=== PATIENT | female | born 2000 | race Caucasian/White ===

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

== ENCOUNTER 2023-02-28 14:50 | Emergency (ER) | payer OTHER ==
[2023-02-28 15:12] VITALS: BP 123/66; O2SAT 100
--- NOTE | 2023-02-28 15:17 | ED Physician Documentation ---
PD HPI URI - Stated complaint Stated Complaint: BILAT EAR PX, PRESSURE - Chief complaint Chief Complaint: Heent - History obtained from History obtained from: Patient - History of Present Illness Timing - onset: How many days ago (few days of pressure feeling in ears and nasal congestion. Had bilateral ears hurting onset last night.) Timing duration: Days Timing details: Gradual onset, Still present Associated symptoms: Ear pain, Nasal congestion, Sinus pain. No: Fever, Chills, Sore throat Contributing factors: No: Sick contact Similar symptoms before: Has not had sx before Review of Systems Constitutional: denies: Fever, Chills Ears: reports: Ear pain Nose: reports: Congestion, Sinus pressure / pain Throat: denies: Sore throat PD PAST MEDICAL HISTORY - Past Medical History Past Medical History: No - Past Surgical History Past Surgical History: No - Present Medications Home Medications: Ambulatory Orders Medication Instructions Recorded Confirmed Amoxicillin 500 mg PO TID #21 cap 02/28/23 Cetirizine [ZyrTEC] 10 mg PO BID #15 tablet 02/28/23 - Allergies Allergies/Adverse Reactions: Allergies Allergy/AdvReac Type Severity Reaction Status Date / Time No Known Drug Allergies Allergy Verified 02/28/23 15:12 - Social History Does the pt smoke?: No Smoking Status: Never smoker Does the pt drink ETOH?: No Does the pt have substance abuse?: No - Immunizations Immunizations are current?: Yes - POLST Patient has POLST: No PD ED PE NORMAL - Vitals Vital signs reviewed: Yes - General General: Alert and oriented X 3, No acute distress, Well developed/nourished - HEENT HEENT: Moist mucous membranes, Pharynx benign. No: Ears normal (fluid behind both eardrums. Right side with moderate redness as well. ) - Neck Neck: Supple, no meningeal sign, No adenopathy - Respiratory Respiratory: Clear bilaterally Results - Vitals Vitals: Oxygen O2 Source Room air PD Medical Decision Making - ED course Complexity details: considered differential (congestion and ear pressure/pain but is abruptly worsening and some redness of right TM, consider infectious cause. ), d/w patient Departure - Departure Disposition: 01 Home, Self Care Clinical Impression: Ear pain Qualifiers: Laterality: bilateral Qualified Code(s): H92.03 - Otalgia, bilateral Otitis media Qualifiers: Chronicity: acute Laterality: right Recurrence: non-recurrent Spontaneous tympanic membrane rupture: without spontaneous rupture Condition: Stable Record reviewed to determine appropriate education?: Yes Instructions: ED Otitis Media Acute Adult Prescriptions: Amoxicillin 500 mg PO TID #21 cap Cetirizine [ZyrTEC] 10 mg PO BID #15 tablet Comments: There does appear to be fluid behind the eardrums that is likely causing much of your symptoms. There is some moderate redness on the right as well that may be infectious 2. We can treat this with cetirizine antihistamine as well as ibuprofen anti-inflammatories. I would also add amoxicillin antibiotic. I sent your prescriptions to [facility] pharmacy. Recheck if not improving well over the next several days and resolved by 3 to 5 days. Forms: PCP List Discharge Date/Time: 02/28/23 15:43
[2023-02-28] MEDS ORDERED: IBUPROFEN 600 MG TABLET PO STA (15:31)
[2023-02-28] MEDS ORDERED: AMOXICILLIN 250 MG CAPSULE PO STA (15:31)
[2023-02-28] MEDS ORDERED: CETIRIZINE 10 MG TABLET PO STA (15:32)
== END 2023-02-28 15:43 | disposition home or self-care (01) ==
LOC: ED 14:50
DX: H66.91 Otitis media, unspecified, right ear (principal); H92.03 Otalgia, bilateral
CPT/HCPCS: 99282; 99283; A9270

== ENCOUNTER 2023-04-25 09:19 | Emergency (ER) | payer OTHER ==
[2023-04-25] MEDS ORDERED: DEXAMETHASONE 10 MG/ML VIAL PO STA (10:07)
[2023-04-25] MEDS ORDERED: CHERRY SYRUP 10 ML UDC PO ONE (10:07)
[2023-04-25] MEDS ORDERED: KETOROLAC 30 MG/ML VIAL IM STA (10:07)
--- NOTE | 2023-04-25 10:10 | ED Physician Documentation ---
PD HPI BACK PAIN - Stated complaint Stated Complaint: BACK PX - Chief complaint Chief Complaint: Back Pain - History obtained from History obtained from: Patient, Friend - History of Present Illness Timing - onset: How many years ago (4) Timing - duration: Years (4) Timing - details: Gradual onset, Still present Location: Upper, Mid, Lower Quality: Pain Associated symptoms: Numbness (across lower back is new). 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 [place] and she did have some imaging done of her spine with a CT scan and she has been in to get physical therapy. A referral to chiropractor has failed. Review of Systems Constitutional: denies: Fever Ears: denies: Ear pain Nose: denies: Congestion Throat: denies: Sore throat Respiratory: denies: Dyspnea, Cough GI: denies: Abdominal Pain, Nausea, Vomiting, Constipation, Diarrhea : denies: Dysuria, Frequency Skin: denies: Rash Musculoskeletal: reports: Back pain. denies: Extremity pain Neurologic: denies: Generalized weakness, Focal weakness, Numbness PD PAST MEDICAL HISTORY - Past Medical History Past Medical History: Yes : Renal insuffiency - Past Surgical History Past Surgical History: Yes - Present Medications Home Medications: Ambulatory Orders Medication Instructions Recorded Confirmed Loratadine [All Day Allergy Relief] 10 mg PO DAILY 04/25/23 04/25/23 traMADol [Ultram] 50 - 100 mg PO Q6H PRN #20 tablet 04/25/23 - Allergies Allergies/Adverse Reactions: Allergies Allergy/AdvReac Type Severity Reaction Status Date / Time No Known Drug Allergies Allergy Verified 04/25/23 09:25 - Social History Does the pt smoke?: No Smoking Status: Never smoker Does the pt drink ETOH?: No Does the pt have substance abuse?: No - Immunizations Immunizations are current?: Yes - POLST Patient has POLST: No PD ED PE NORMAL - Vitals Vital signs reviewed: Yes (hypertensive ) - General General: Alert and oriented X 3, No acute distress, Well developed/nourished - HEENT HEENT: Atraumatic, PERRL, EOMI - Respiratory Respiratory: No respiratory distress - Back Back: No CVA TTP, No spinal TTP, Other (generally tender back through the rhomboids and para spinous muscles and up to the trapezius and across the shoulders. ) - Derm Derm: Normal color, Warm and dry, No rash - Extremities Extremities: No deformity, No edema - Neuro Neuro: Alert and oriented X 3, inspector finishing 2-12 intact, No motor deficit, No sensory deficit, Normal speech Eye Opening: Spontaneous Motor: Obeys Commands Verbal: Oriented GCS Score: 15 - Psych Psych: Normal mood, Normal affect Results - Vitals Vitals: Vital Signs - 24 hr 04/25/23 04/25/23 09:20 11:37 Temperature 36.6 C 36.6 C Heart Rate 83 74 Respiratory 16 16 Rate Blood Pressure 136/91 H 135/71 H O2 Saturation 99 95 Oxygen O2 Source Room air - Labs Labs: Laboratory Tests 04/25/23 04/25/23 04/25/23 10:12 10:12 10:12 WBC 10.5 RBC 4.60 Hgb 13.8 Hct 41.2 MCV 89.6 MCH 30.0 MCHC 33.5 RDW 12.5 Plt Count 337 MPV 10.5 Neut # (Auto) 7.5 H Lymph # (Auto) 2.2 [place] # (Auto) 0.5 Eos # (Auto) 0.2 Baso # (Auto) 0.1 Absolute Nucleated RBC 0.00 Nucleated RBC % 0.0 ESR 7 Sodium 140 Potassium 3.4 L Chloride 107 Carbon Dioxide 26 Anion Gap 7.0 BUN 10 Creatinine 0.7 Estimated GFR (MDRD) 107 Glucose 107 H Calcium 9.5 Total Bilirubin 0.7 AST 20 ALT 25 Alkaline Phosphatase 61 C-Reactive Protein 0.5 Total Protein 7.1 Albumin 4.3 Globulin 2.8 Albumin/Globulin Ratio 1.5 Lipase 11 PD Medical Decision Making - ED course Complexity details: reviewed results, re-evaluated patient, considered differential, d/w patient, d/w family Reviewed Lab Results: We reviewed a complete blood count showing a normal white blood cell count normal hemoglobin hematocrit and platelets and normal industries the ESR was normal at 7 a chemistry panel showed a potassium low at 3.4 the rest of the electrolytes kidney and liver function are normal the C-reactive protein was normal at 0.5. 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 She does not give a history of resolution of symptoms with rest and I do not think she is an astute historian. She keeps saying that she does not know. She appears frustrated and I have gone to great lengths to explain different mechanisms for having this type of chronic pain mostly related to work habits. Today in the emergency department she is given a dose of dexamethasone and Toradol which does have some improvement in her general pain. At the conclusion of treatment it is apparent the patient wants something else for pain. She is not able to take anti-inflammatories as she only has 1 kidney. She has chronic pain and I have discouraged her from using pain medication she indicates to me that she has had to take pain medicines previously she has never felt that she had a problem with addiction. She indicates that hydrocodone does nothing for her she has had prior improvement with tramadol and oxycodone. We will provide a limited supply of tramadol for the patient and I will refer her to her primary care for referral to a chiropractor. Departure - Departure Disposition: 01 Home, Self Care Clinical Impression: Back pain Qualifiers: Back pain location: thoracic back pain Chronicity: chronic Back pain laterality: bilateral Qualified Code(s): M54.6 - Pain in thoracic spine Condition: Stable Instructions: ED Spasm Back No Trauma, ED Chronic Pain Management Follow-Up: GURU ABREU DO [Primary Care Provider] - Prescriptions: traMADol [Ultram] 50 - 100 mg PO Q6H PRN #20 tablet PRN Reason: Pain Comments: Marii, today it looks like the pain you are having in your back is chronic and we did not find inflammatory markers elevated to suggest this was a specific type of muscle problem. This type of pain is usually related to overuse and skeletal malalignment. My recommendation is to follow-up with the chiropractor as you have previously attempted. I have E scrib[facility] [place]. Discharge Date/Time: 04/25/23 11:39
[2023-04-25 10:18] LABS: BASOPHILS # (AUTO) 0.1 10^3/uL (0.0-0.1); BASOPHILS % (AUTO) 0.7 %; EOSINOPHILS # (AUTO) 0.2 10^3/uL (0.0-0.7); EOSINOPHILS % (AUTO) 1.4 %; HCT - HEMATOCRIT 41.2 % (37.0-47.0); HGB - HEMOGLOBIN 13.8 g/dL (12.0-16.0); LYMPHOCYTES # (AUTO) 2.2 10^3/uL (1.5-3.5); MEAN CORPUSCULAR HGB CONC 33.5 g/dL (32.0-36.0); MEAN CORPUSCULAR VOLUME 89.6 fL (81.0-99.0); MEAN PLATELET VOLUME 10.5 fL (7.9-10.8); MONOCYTES # (AUTO) 0.5 10^3/uL (0.0-1.0); NEUTROPHILS # (AUTO) 7.5 10^3/uL (1.5-6.6); NEUTROPHILS % (AUTO) 71.6 %; PLT - PLATELET COUNT 337 10^3/uL (130-450); RED CELL DISTRIBUTION WIDTH 12.5 % (12.0-15.0); WHITE BLOOD COUNT 10.5 x10^3/uL (4.8-10.8)
[2023-04-25 10:32] LABS: ALBUMIN 4.3 g/dL (3.2-5.5); ALBUMIN/GLOBULIN RATIO 1.5 (1.0-2.2); BILIRUBIN,TOTAL 0.7 mg/dL (0.2-1.0); CALCIUM 9.5 mg/dL (8.5-10.3); CREATININE 0.7 mg/dL (0.6-1.3); CRP - C-REACTIVE PROTEIN 0.5 mg/dL (<0.5); POTASSIUM 3.4 mmol/L (3.5-4.5); TOTAL PROTEIN 7.1 g/dL (6.4-8.9)
[2023-04-25 11:46] VITALS: BP 135/71; O2SAT 95
== END 2023-04-25 11:39 | disposition home or self-care (01) ==
LOC: ED 09:19
DX: M54.6 Pain in thoracic spine (principal); G89.29 Other chronic pain; Z90.5 Acquired absence of kidney
CPT/HCPCS: 36415; 80053; 83690; 85025; 85651; 86140; 96372; 99283; A9270

== ENCOUNTER 2023-05-02 22:57 | Emergency (ER) | payer OTHER ==
[2023-05-02 23:11] VITALS: BP 125/73; O2SAT 99
[2023-05-02] MEDS ORDERED: methocarbamoL 500 MG TABLET PO STA (23:24)
--- NOTE | 2023-05-02 23:29 | ED Physician Documentation ---
History of Present Illness - Stated complaint Stated Complaint: BACK PX - Chief complaint Chief Complaint: Back Pain - History obtained from History obtained from: Patient - Additonal information Additional information: 22yF with pmh chronic back pain p/w persistent upper mid back pain X 4 years, worse this evening without acute injury. worse with ROM and moving/walking around. denies fever, lower back pain/flank pain or urinary sx. PD PAST MEDICAL HISTORY - Past Medical History Past Medical History: Yes : Renal insuffiency Musculoskeletal: Chronic back pain - Past Surgical History Past Surgical History: No - Present Medications Home Medications: Ambulatory Orders Medication Instructions Recorded Confirmed traMADol [Ultram] 50 - 100 mg PO Q6H PRN #20 tablet 04/25/23 05/02/23 methocarbamoL [Robaxin] 500 mg PO Q6H PRN #20 tablet 05/02/23 - Allergies Allergies/Adverse Reactions: Allergies Allergy/AdvReac Type Severity Reaction Status Date / Time NSAIDS (Non-Steroidal Allergy Unknown Verified 05/02/23 23:09 Anti-Inflamma tree nuts Allergy Rash Uncoded 05/02/23 23:10 - Social History Does the pt smoke?: No Smoking Status: Never smoker Does the pt drink ETOH?: No Does the pt have substance abuse?: No - Immunizations Immunizations are current?: Yes - POLST Patient has POLST: No PD ED PE NORMAL - Vitals Vital signs reviewed: Yes - General General: Alert and oriented X 3, No acute distress, Well developed/nourished - HEENT HEENT: Atraumatic, PERRL - Neck Neck: Supple, no meningeal sign, No bony TTP, Other (BL neck discomfort to palpation in trapezius muscle distribution) - Back Back: No CVA TTP, No spinal TTP, Other (BL upper back ttp along paraspinal muscles. ) - Derm Derm: Normal color, Warm and dry - Extremities Extremities: Other (CSM intact BL LE) - Neuro Neuro: No motor deficit, No sensory deficit Results - Vitals Vitals: Vital Signs - 24 hr 05/02/23 23:02 Temperature 36.4 C L Heart Rate 455 H Respiratory 16 Rate Blood Pressure 125/73 O2 Saturation 99 Oxygen O2 Source Room air PD Medical Decision Making - ED course ED course: 22yF p/w acute on chronic upper back pain, not relieved with tylenol or tramadol. patient cannot take NSAIDs due to renal insufficiency. doubt renal etiology given no CVA ttp and pain is in muscle distribution along upper back. no midline ttp therefore doubt spinal pathology. robaxin provided with improvement in pain. rx sent and return precautions given. she will f/u with wi. Departure - Departure Disposition: 01 Home, Self Care Clinical Impression: Back pain Condition: Stable Instructions: ED Neck Back Pain General Prescriptions: methocarbamoL [Robaxin] 500 mg PO Q6H PRN #20 tablet PRN Reason: Pain >8 Comments: You were seen in the emergency department for back pain. Prescription for Robaxin, muscle relaxer, [facility] [place]. Please follow-up with your primary care provider or walk in clinic and return to the emergency department if you have any new or worsening symptoms or other concerns.
--- NOTE | 2023-05-04 12:55 | ED Physician Documentation ---
ED Addendum - Addendum Addendum: 05/04/23 12:54 [facility] apparently did not receive the prescription. The patient asked that we resend it. I reordered the medications including tramadol as they had been prescribed by the prior provider and retransmitted to [facility].
== END 2023-05-02 23:46 | disposition home or self-care (01) ==
LOC: ED 22:57
DX: M54.6 Pain in thoracic spine (principal)
CPT/HCPCS: 99282; 99283; A9270

== ENCOUNTER 2024-01-01 09:38 | Emergency (ER) | payer MEDICAID, OTHER ==
[2024-01-01 09:56] VITALS: O2SAT 100
[2024-01-01 10:26] LABS: BILIRUBIN,URINE NEGATIVE (NEGATIVE); GLUCOSE, URINE (UA) NEGATIVE (NEGATIVE); KETONES,URINE (UA) NEGATIVE (NEGATIVE); LEUKOCYTE ESTERASE, URINE TRACE (NEGATIVE); NITRITE,URINE NEGATIVE (NEGATIVE); OCCULT BLOOD,URINE SMALL (NEGATIVE); PROTEIN,URINE NEGATIVE (NEGATIVE); UROBILINOGEN,URINE 0.2 (NORMAL) E.U./dL (NORMAL)
[2024-01-01 10:27] LABS: BASOPHILS # (AUTO) 0.1 10^3/uL (0.0-0.1); BASOPHILS % (AUTO) 0.6 %; EOSINOPHILS % (AUTO) 0.4 %; HCT - HEMATOCRIT 43.1 % (37.0-47.0); HGB - HEMOGLOBIN 14.5 g/dL (12.0-16.0); LYMPHOCYTES # (AUTO) 2.1 10^3/uL (1.5-3.5); LYMPHOCYTES % (AUTO) 18.3 %; MEAN CORPUSCULAR HEMOGLOBIN 31.7 pg (27.0-31.0); MEAN CORPUSCULAR HGB CONC 33.6 g/dL (32.0-36.0); MEAN CORPUSCULAR VOLUME 94.1 fL (81.0-99.0); MEAN PLATELET VOLUME 10.5 fL (7.9-10.8); MONOCYTES # (AUTO) 0.4 10^3/uL (0.0-1.0); MONOCYTES % (AUTO) 3.8 %; NEUTROPHILS # (AUTO) 8.8 10^3/uL (1.5-6.6); NEUTROPHILS % (AUTO) 76.5 %; PLT - PLATELET COUNT 302 10^3/uL (130-450); RED BLOOD COUNT 4.58 10^6/uL (4.20-5.40); RED CELL DISTRIBUTION WIDTH 12.1 % (12.0-15.0); WHITE BLOOD COUNT 11.4 x10^3/uL (4.8-10.8)
[2024-01-01 10:31] LABS: CLARITY,URINE CLEAR (CLEAR); HCG UR QUAL NEGATIVE
[2024-01-01 10:34] LABS: AMPHETAMINE SCREEN,URINE NEGATIVE (NEGATIVE); BARBITURATE SCREEN,UR NEGATIVE (NEGATIVE); BENZODIAZEPINES SCREEN, URINE NEGATIVE (NEGATIVE); BUPRENORPHINE SCREEN, URINE NEGATIVE (NEGATIVE); COCAINE SCREEN URINE NEGATIVE (NEGATIVE); METHADONE SCREEN, URINE NEGATIVE (NEGATIVE); METHAMPHETAMINES SCREEN, URINE NEGATIVE (NEGATIVE); OPIATE SCREEN, URINE NEGATIVE (NEGATIVE); OXYCODONE SCREEN, URINE NEGATIVE (NEGATIVE); THC CANNABINOID SCREEN, URINE POSITIVE (NEGATIVE); TRICYCLIC ANTIDEPRESSANT,URINE NEGATIVE (NEGATIVE)
[2024-01-01 10:41] LABS: ALBUMIN 4.5 g/dL (3.2-5.5); ALBUMIN/GLOBULIN RATIO 1.3 (1.0-2.2); ALKALINE PHOSPHATASE 76 IU/L (42-121); ALT ALANINE AMINOTRANSFERASE 9 IU/L (10-60); AST ASPARTATE AMINOTRANSFERASE 12 IU/L (10-42); BILIRUBIN,TOTAL 0.9 mg/dL (0.2-1.0); BUN - BLOOD UREA NITROGEN 14 mg/dL (6-20); CALCIUM 9.7 mg/dL (8.5-10.3); CARBON DIOXIDE - CO2 26 mmol/L (21-32); CHLORIDE 105 mmol/L (101-111); CREATININE 0.9 mg/dL (0.6-1.3); ETOH - ETHANOL < 10.0 mg/dL; GFR - MDRD 79 (>89); GLUCOSE 91 mg/dL (74-104); LIPASE 12 U/L (11-82); POTASSIUM 3.8 mmol/L (3.5-4.5); SODIUM 137 mmol/L (135-145); TOTAL PROTEIN 7.9 g/dL (6.4-8.9)
[2024-01-01 10:42] LABS: SALICYLATE < 1.5 mg/dL
[2024-01-01 10:42] LABS: BACTERIA,URINE Rare /HPF (None Seen); MUCUS,URINE Few Strands; RBC,URINE 0-5 /HPF (0-5); SQUAMOUS EPITHELIAL CELL,UR MOD Squamous (<= Few)
[2024-01-01 10:43] LABS: ACETAMINOPHEN < 0.1 ug/mL
--- NOTE | 2024-01-01 11:33 | ED Physician Documentation ---
PD HPI MHE - Stated complaint Stated Complaint: MHE - Chief complaint Chief Complaint: MHE - Additional information Additional information: 23-year-old female with history of anxiety presents emergency department today for depression anxiety and suicidal ideation. 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 She also says that her boyfriend lives in [place] when she has not seen him for a few months now and she feels like he was in a support system that she had and her family does not like him. She also states that her cat ran away about a week and a half ago and has not seen him since and she is feeling a lot of depression anxiety around this as well. Patient is quite tearful and shaking through interviewer. She says that she does not want to pursue hospitalization but just wants additional resources that she does not make about decision. No recent fevers or chills no other illnesses. She will not endorse her suicidal plan but says that she has many says that she has never tried to commit suicide and has not tried today or yesterday to suicide. PD PAST MEDICAL HISTORY - Past Medical History Past Medical History: Yes Cardiovascular: None Respiratory: None Neuro: None Endocrine/Autoimmune: None GI: None DIRECTOR VETERINARY: None : Renal insuffiency, Kidney stones HEENT: None Psych: Depression, Anxiety Musculoskeletal: Chronic back pain Derm: None - Past Surgical History Past Surgical History: No - Present Medications Home Medications: Ambulatory Orders Medication Instructions Recorded Confirmed OLANZapine [Zyprexa] 5 mg PO BID #10 tablet 01/01/24 - Allergies Allergies/Adverse Reactions: Allergies Allergy/AdvReac Type Severity Reaction Status Date / Time NSAIDS (Non-Steroidal Allergy Unknown Verified 01/01/24 10:25 Anti-Inflamma tree nuts Allergy Rash Uncoded 01/01/24 10:25 - Social History Does the pt smoke?: No Smoking Status: Never smoker Does the pt drink ETOH?: No Does the pt have substance abuse?: Yes Substance Use and Type: CBD oil / Products - Immunizations Immunizations are current?: Yes - POLST Patient has POLST: No PD ED PE NORMAL - Vitals Vital signs reviewed: Yes - General General: Alert and oriented X 3, No acute distress, Well developed/nourished - HEENT HEENT: Atraumatic, PERRL - Cardiac Cardiac: RRR - Respiratory Respiratory: No respiratory distress - Abdomen Abdomen: Normal bowel sounds, Soft - Derm Derm: Normal color, Warm and dry, No rash - Neuro Neuro: Alert and oriented X 3, eap counselor 2-12 intact, No motor deficit, No sensory deficit, Normal speech PD ED PE EXPANDED - Psych Psych: Depressed, Suicidal, Tearful, Withdrawn, Poor eye contact, Anxious. No: Homicidal, Combative, Manic, Pressured speech, Flight of ideas, Auditory hallucinations, Visual hallucinations, Tactile hallucinations Results - Vitals Vitals: Vital Signs - 24 hr 01/01/24 01/01/24 09:46 13:35 Temperature 36.4 C L 36.5 C Heart Rate 63 62 Respiratory 16 16 Rate Blood Pressure 118/64 116/62 O2 Saturation 100 100 Oxygen O2 Source Room air - Labs Labs: Laboratory Tests 01/01/24 01/01/24 01/01/24 10:05 10:20 10:20 WBC 11.4 H RBC 4.58 Hgb 14.5 Hct 43.1 MCV 94.1 MCH 31.7 H MCHC 33.6 RDW 12.1 Plt Count 302 MPV 10.5 Neut # (Auto) 8.8 H Lymph # (Auto) 2.1 [place] # (Auto) 0.4 Eos # (Auto) 0.0 Baso # (Auto) 0.1 Absolute Nucleated RBC 0.00 Nucleated RBC % 0.0 Sodium 137 Potassium 3.8 Chloride 105 Carbon Dioxide 26 Anion Gap 6.0 BUN 14 Creatinine 0.9 Estimated GFR (MDRD) 79 L Glucose 91 Calcium 9.7 Total Bilirubin 0.9 AST 12 ALT 9 L Alkaline Phosphatase 76 Total Protein 7.9 Albumin 4.5 Globulin 3.4 Albumin/Globulin Ratio 1.3 Lipase 12 TSH 1.40 Urine Color YELLOW Urine Clarity CLEAR Urine pH 6.0 Ur Specific [place] 1.025 Urine Protein NEGATIVE Urine Glucose (UA) NEGATIVE Urine Ketones NEGATIVE Urine Occult Blood SMALL H Urine Nitrite NEGATIVE Urine Bilirubin NEGATIVE Urine Urobilinogen 0.2 (NORMAL) Ur Leukocyte Esterase TRACE H Urine RBC 0-5 Urine WBC 4-5 Ur Squamous Epith Cells MOD Squamous H Urine Bacteria Rare Urine Mucus Few Strands Ur Microscopic Review INDICATED Urine Culture Comments NOT INDICATED Urine HCG, Qual NEGATIVE Salicylates < 1.5 Urine Opiates Screen NEGATIVE Ur Buprenorphine Scrn NEGATIVE Ur Oxycodone Screen NEGATIVE Urine Methadone Screen NEGATIVE Acetaminophen < 0.1 Ur Barbiturates Screen NEGATIVE Ur Tricyclics Screen NEGATIVE Ur Phencyclidine Scrn NEGATIVE Ur Amphetamine Screen NEGATIVE U Methamphetamines Scrn NEGATIVE U Benzodiazepines Scrn NEGATIVE Urine Cocaine Screen NEGATIVE U Cannabinoids Screen POSITIVE H Ur Drug Screen Comment CUTOFF CONC BELOW: Ethyl Alcohol < 10.0 Departure - Departure Disposition: 01 Home, Self Care Clinical Impression: Suicidal ideation, Anxiety, Depression Instructions: ED Stress React, ED Depression Prescriptions: OLANZapine [Zyprexa] 5 mg PO BID #10 tablet Comments: Thank you for trusting us with your care I am sorry that you have been experiencing insomnia at home stressors recently. As we discussed actually you prioritize your appointment with your primary care provider tomorrow you were establishing new care with and discuss today's ER visit including sleep difficulties that you have been having. I have sent a short prescription of Zyprexa to your preferred pharmacy to see if this can help with your symptoms as this is what seemed to help with your twin sister. Please come back to the ER if you are having any increased suicidal ideation or homicidal ideation. Forms: PCP List Discharge Date/Time: 01/01/24 13:35
[2024-01-01] MEDS: hydrOXYzine PAMOATE 25 MG CAPSULE PO STA ×2 (12:41)
[2024-01-01 13:41] VITALS: BP 116/62
== END 2024-01-01 13:35 | disposition home or self-care (01) ==
LOC: ED 09:38
DX: R45.851 Suicidal ideations (principal); F32.A Depression, unspecified; F41.9 Anxiety disorder, unspecified
CPT/HCPCS: 36415; 80053; 80143; 80179; 80306; 81001; 81003; 81025; 82077; 83690; 84443; 85025; 87086; 99284